=== PATIENT | female | born 1985 | race Caucasian/White ===

== ENCOUNTER 2018-02-24 11:45 | Emergency (ER) | payer OTHER, SELFPAY ==
[2018-02-24 11:46] VITALS: BP 133/91; PULSE 102; RESP 20; TEMP 36.6; O2SAT 100; BMI 23.9
--- NOTE | 2018-02-24 12:31 | ED.VISSUMM ---
- ER Visit Summary Date of Service: 02/24/18 Chief Complaint: Neck pain. Intermittent fevers. History of Present Illness: The patient is a 32 F no significant past medical history. Prior cholecystectomy. For the last 2 weeks patient's had intermittent neck discomfort. Head pressure. Intermittent fevers of 100- 01. Denies any severe headaches. No vomiting, diarrhea or dysuria. No abdominal pain. Her last antipyretic was around 5 AM today. No significant cough or shortness of breath. No nasal drainage. Physical Examination: Vital signs are stable she is afebrile her temperature is 97.8. Pulse ox 100% on room air no signs of hypoxia. Patient is in absolutely no distress. Resting comfortably in bed. Does not look ill. HEENT exam normal. No frontal or maxillary sinus tenderness. Moist mucous membranes. No erythema or exudate. No trouble swallowing or breathing. TMs normal. Neck nontender. No lymphadenopathy. No meningismus. Able to touch chin to chest. Lungs clear to auscultation bilaterally. Heart regular rhythm. No murmur. Abdomen soft nontender. Normal bowel sounds no peritoneal signs. Moving all 4 extremities. Neurovascularly intact. 5 out of 5 roof mechanic strength. Dorsi plantar flexion intact. Back nontender. No CVA tenderness. Skin normal. No rashes. Neurologic exam normal NIH is 0. Bilateral roof mechanic strength. Bilateral dorsi plantar flexion. Fingertip to nose and heel to [place] within normal limits. Test Results: None Emergency Department Course and Treatment: Patient's exam is completely normal she is afebrile and has absolutely no sign of a bacterial infection. Clinically she looks very well. I do not think she needs any testing at this time and she is comfortable with that plan. Treatment Plan: Treat as a viral syndrome. Follow-up with her PCP which is a nurse practitioner. Disposition: discarge Impression: Viral syndrome This note was generated with [employer] dictation software. It may contain incorrect words, spelling, and punctuation that were not noted in review of the chart prior to signing ED Disposition - Plan for ED Patient: Chief Complaint: General Illness Referrals: Soco Freeman NP-C [Primary Care Provider] -
--- NOTE | 2018-02-24 12:34 | ED.DCSUM_ITS ---
- ER Visit Summary Date of Service: 02/24/18 Chief Complaint: Neck pain. Intermittent fevers. History of Present Illness: The patient is a 32 F no significant past medical history. Prior cholecystectomy. For the last 2 weeks patient's had intermittent neck discomfort. Head pressure. Intermittent fevers of 100- 01. Denies any severe headaches. No vomiting, diarrhea or dysuria. No abdominal pain. Her last antipyretic was around 5 AM today. No significant cough or shortness of breath. No nasal drainage. Physical Examination: Vital signs are stable she is afebrile her temperature is 97.8. Pulse ox 100% on room air no signs of hypoxia. Patient is in absolutely no distress. Resting comfortably in bed. Does not look ill. HEENT exam normal. No frontal or maxillary sinus tenderness. Moist mucous membranes. No erythema or exudate. No trouble swallowing or breathing. TMs normal. Neck nontender. No lymphadenopathy. No meningismus. Able to touch chin to chest. Lungs clear to auscultation bilaterally. Heart regular rhythm. No murmur. Abdomen soft nontender. Normal bowel sounds no peritoneal signs. Moving all 4 extremities. Neurovascularly intact. 5 out of 5 phd internship strength. Dorsi plantar flexion intact. Back nontender. No CVA tenderness. Skin normal. No rashes. Neurologic exam normal NIH is 0. Bilateral phd internship strength. Bilateral dorsi plantar flexion. Fingertip to nose and heel to [place] within normal limits. Test Results: None Emergency Department Course and Treatment: Patient's exam is completely normal she is afebrile and has absolutely no sign of a bacterial infection. Clinically she looks very well. I do not think she needs any testing at this time and she is comfortable with that plan. Treatment Plan: Treat as a viral syndrome. Follow-up with her PCP which is a nurse practitioner. Disposition: discarge Impression: Viral syndrome This note was generated with [employer] dictation software. It may contain incorrect words, spelling, and punctuation that were not noted in review of the chart prior to signing ED Disposition - Plan for ED Patient: Chief Complaint: General Illness Referrals: Soco Freeman NP-C [Primary Care Provider] -
--- NOTE | 2018-02-24 12:34 | ED.DEP ---
ED Disposition - Plan for ED Patient: Disposition: Home or Assisted Living Chief Complaint: General Illness Instructions: ED Viral Syndrome Referrals: Soco Freeman NP-C [Primary Care Provider] - 1 Week if not improving Additional Instructions: Plenty of fluids and rest. Alternate Tylenol and Motrin as needed for fever. This should resolve in the next week if not follow-up your primary care provider. Or return to ER if feeling a lot worse. Your exam today is completely normal.
== END 2018-02-24 12:53 | disposition home or self-care (01) ==
LOC: ED 12:44
PROVIDERS: Emergency Provider Emergency Medicine; Family Provider Nurse Practitioner Family; PCP Nurse Practitioner Family
DX: B34.9 Viral infection, unspecified (principal); M54.2 Cervicalgia; R50.9 Fever, unspecified; Z90.49 Acquired absence of other specified parts of digestive tract
CPT/HCPCS: 99282